=== PATIENT | female | born 1980 | race American Indian/Alaskan Native ===

== ENCOUNTER 2020-01-09 12:14 | Emergency (ER) | payer SELFPAY ==
--- NOTE | 2020-01-09 13:09 | Emergency Department Report ---
{null, ED HPI - General Chief complaint: Medical Clearance Stated complaint: Time Seen by Provider: 01/09/20 12:49 Source: EMS Mode of arrival: Ambulatory Limitations: No Limitations - History of Present Illness Initial comments: 39-year-old female currently approximately 2 months presents to the hospital from [place] with psychiatric hospital for reassessment of status. This is her second and she has 1 living child without history of miscarriages or abortions. Patient has been admitted to [place] x1 week for depression and suicidal thoughts. Patient does not know her LMP and only states that last period was 2 months ago. Patient has only had ER evaluations of her has not yet initiated care. She was seen here December 10, 2019 and had a ultrasound showing the followin. Intrauterine fluid collection which may represent early gestational sac with est imated sonographic age of 5.3 weeks.days. No definite yolk sac or embryonic pole. Clinical and sonographic follow-up is recommended. hCG quant was 2298. Patient states she was reevaluated at another hospital prior to [facility] admission and as per review was documentation ultrasound at 01/01 showed a blighted ovum and hCG quant of 38,205 on 01/06. Patient does not have any pain or vaginal bleeding and does not have any acute physical complaints. - Related Data Home Medications Medication Instructions Recorded Confirmed Last Taken Escitalopram [Lexapro] 10 mg PO DAILY 12/08/19 12/08/19 Unknown Allergies Allergy/AdvReac Type Severity Reaction Status Date / Time No Known Allergies Allergy Verified 12/08/19 15:38 ED Review of Systems ROS: Stated complaint: Other details as noted in HPI Comment: All other systems reviewed and negative ED Past Medical Hx - Past Medical History Previous Medical History?: Yes Hx Psychiatric Treatment: Yes (Depression/ Suicide attempt) - Social History Smoking Status: Light Tobacco Smoker Substance Use Type: None - Medications Home Medications: Home Medications Medication Instructions Recorded Confirmed Last Taken Type Escitalopram [Lexapro] 10 mg PO DAILY 12/08/19 12/08/19 Unknown History ED Physical Exam - General Limitations: No Limitations - Other Other exam information: General: No acute distress Head: Atraumatic Eyes: normal appearance ENT: Moist mucous membranes Neck: Normal appearance, no midline tenderness Chest: Clear to auscultation bilaterally CV: Regular rate and rhythm Abdomen: Soft, normal bowel sounds, nontender, nondistended, no rebound or guarding Back: Normal inspection Extremity: Normal inspection, full range of motion Neuro: Alert O x 3, no facial asymmetry, speech clear, no gross motor sensory deficit Psych: Appropriate behavior Skin: No rash ED Course Vital Signs 01/09/20 01/09/20 01/09/20 12:30 12:39 12:46 Temperature 99.1 F Pulse Rate 79 Respiratory 16 Rate Blood Pressure 114/69 114/69 114/69 O2 Sat by Pulse 99 100 98 Oximetry 01/09/20 01/09/20 01/09/20 13:00 13:52 14:00 Temperature Pulse Rate Respiratory Rate Blood Pressure 128/68 128/68 130/73 O2 Sat by Pulse 100 100 100 Oximetry - Consultations Consultation #1: 01/09/20 14:[address] Maru Gibson [employer] doctor density control puncher. She agrees that patient is likely having a miscarriage given decreasing quant size and lack of pole s in an empty gestational sac. Advises patient follow-up in office to trend beta hCG levels and discuss possibility of D&C as an oupatient. No emergent indication for D&C or acute surgical intervention at this time. ED Medical Decision Making - Lab Data Result diagrams: 01/09/20 13:01 Lab Results 01/09/20 01/09/20 01/09/20 Range/Units 13:01 13:01 13:04 WBC 12.0 H (4.5-11.0) K/mm3 RBC 3.66 (3.65-5.03) M/mm3 Hgb 12.9 (10.1-14.3) gm/dl Hct 37.1 (30.3-42.9) % MCV 102 H (79-97) fl MCH 35 H (28-32) pg MCHC 35 H (30-34) % RDW 13.1 L (13.2-15.2) % Plt Count 372 (140-440) K/mm3 Lymph % (Auto) 23.6 (13.4-35.0) % [place] % (Auto) 7.2 (0.0-7.3) % Eos % (Auto) 1.2 (0.0-4.3) % Baso % (Auto) 0.7 (0.0-1.8) % Lymph # 2.8 (1.2-5.4) K/mm3 [place] # 0.9 H (0.0-0.8) K/mm3 Eos # 0.1 (0.0-0.4) K/mm3 Baso # 0.1 (0.0-0.1) K/mm3 Seg Neutrophils % 67.3 (40.0-70.0) % Seg Neutrophils # 8.1 H (1.8-7.7) K/mm3 HCG, Quant 66308 H (0-4) mIU/mL Blood Type A POSITIVE Antibody Screen Negative - Radiology Data Radiology results: report reviewed (Transvaginal/OB ultrasound: Empty gestational sac 8 weeks 3 days in size functional right ovarian cyst) - Medical Decision Making Patient presents to the hospital with beta-hCG trending downward and continued empty gestational sac on ultrasound suggesting that patient is having a miscarriage. Case was discussed with [employer] doctor on-call who advises outpatient follow-up to trend hCG quant levels and also to discuss possibility of D&C as an outpatient. Patient does not have vaginal bleeding and has no emergent need for surgical intervention at this time. Patient be discharged back to [place] and encouraged to follow-up with [employer] as outpatient. - Differential Diagnosis Miscarriage, ectopic Critical Care Time: No Critical care attestation.: If time is entered above; I have spent that time in minutes in the direct care of this critically ill patient, excluding procedure time. ED Disposition Clinical Impression: Missed Disposition: DC-01 TO HOME OR SELFCARE Is pt being admited?: No Does the pt Need Aspirin: No Condition: Stable Instructions: Spontaneous Miscarriage (ED) Additional Instructions: Take the medication as prescribed. Follow-up with your doctor or doctor/clinic provided. Return if symptoms worsen as indicated by your discharge instructions. Is very important you follow-up with the [employer] doctor as an outpatient continue to monitor your beta hCG/baby hormone levels. You may also discuss possible D&C treatment with [employer] during your outpatient follow-up. Referrals: MARU GIBSON MD [Staff Physician] - 2-3 Days ([employer] doctor) Time of Disposition: 14:51 }
[2020-01-09 13:32] LABS: Basophils # (Auto) 0.1 K/mm3 (0.0-0.1); Basophils % (Auto) 0.7 % (0.0-1.8); Eosinophils # (Auto) 0.1 K/mm3 (0.0-0.4); Eosinophils % (Auto) 1.2 % (0.0-4.3); Hematocrit 37.1 % (30.3-42.9); Hemoglobin 12.9 gm/dl (10.1-14.3); Lymphocytes # (Auto) 2.8 K/mm3 (1.2-5.4); Lymphocytes % (Auto) 23.6 % (13.4-35.0); Mean Corpuscular HGB Conc 35 % (30-34); Mean Corpuscular Volume 102 fl (79-97); Monocytes # (Auto) 0.9 K/mm3 (0.0-0.8); Monocytes % (Auto) 7.2 % (0.0-7.3); Platelet Count 372 K/mm3 (140-440); Red Blood Count 3.66 M/mm3 (3.65-5.03); Red Cell Distribution Width 13.1 % (13.2-15.2)
--- NOTE | 2020-01-09 14:07 | Ultrasound Report ---
{null, OB Ultrasound HISTORY: +hcg needs IUP confirmation. TECHNIQUE: Grayscale and color imaging performed. COMPARISON: OB ultrasound from 12/10/2019 FINDINGS: Transabdominal and endovaginal imaging was performed. The uterus measures 10.3 x 6.3 x 7.6 cm. There is an intrauterine cystic structure with mean diameter of 3.3 cm which would correspond with an EGA of 8 weeks and 3 days. A small yolk sac is present whic h appears to have some rim calcification. No pole is identified. No pelvic free fluid. Both ovaries are normal in size with a mildly complex cyst on the right measuring 1.8 cm, likely func tional. IMPRESSION: 1. Empty gestational sac (lacking a pole) as outlined above. Correlate with serial beta hCG lev els and follow-up pelvic ultrasound as indicated. 2. Probable functional right ovarian cyst. Signer Name: Hadley Stoddard MD Signed: 01/09/2020 2:02 PM Workstation Name: [id number] }
[2020-01-09 18:24] VITALS: BP 108/61
== END 2020-01-09 18:00 | disposition home or self-care (01) ==
LOC: ED 12:14
DX: O02.1 Missed abortion (principal); O99.331 Smoking (tobacco) complicating pregnancy, first trimester; Z79.899 Other long term (current) drug therapy; Z3A.08 8 weeks gestation of pregnancy
CPT/HCPCS: 36415; 76801; 76817; 84702; 85025; 86850; 86900; 86901